=== PATIENT | female | born 1965 | race Caucasian/White ===

== ENCOUNTER 2019-08-18 16:37 | Emergency (ER) | payer MEDICAID, SELFPAY ==
--- NOTE | ~2019-08-18 | CT_ITS ---
EXAMINATION: CT BRAIN W/O DATE: 08/18/2019 17:53 INDICATION: Numbness on the left side after seizure TECHNIQUE: Computed tomography (CT) of the head was performed without intravenous contrast. The dose- length product was 605.33 mGy-cm. The mA was adjusted according to patient size. Iterative reconstruc tion technique was employed. COMPARISON: Comparison to multiple prior studies sequentially, with oldest reviewed study dated 06/18. FINDINGS: Normal brain parenchymal volume for age. Normal araujo-white differentiation. No acute intrac ranial hemorrhage, infarction, mass or mass effect. No ventriculomegaly or midline shift. Midline sagittal images demonstrate a normal corpus callosum, c raniovertebral junction and sella turcica. Basilar cisterns are patent. Paranasal sinuses and mastoids are pneumatized. No depressed skull fractures. IMPRESSION: 1. No acute intracranial abnormality. Reviewed, dictated and finalized at location A.
[2019-08-18 16:52] VITALS: BP 159/91; PULSE 76; RESP 17; TEMP 36.7; O2SAT 100
--- NOTE | 2019-08-18 17:34 | ED.GENADULT ---
HPI - General Adult General Chief complaint: Neuro Symptoms/Deficit Stated complaint: Left Side Numbness Time Seen by Provider: 08/18/19 17:17 Source: patient Mode of arrival: ambulatory Limitations: no limitations History of Present Illness HPI narrative: Patient is a 53-year-old with a history of epileptic seizures who presents for evaluation of recurrent seizure, numbness on her head and left upper extremity. Patient reports no decrease in movement or loss of strength, but states she has a tingling sensation. She has numerous breakthrough seizures, but states this is common for her. Last seizure was 2 days ago. Patient does at times have urinary incontinence with the seizures. No fever or recent medication changes. She follows with Dr. Mansfield. No current pain or injury. Patient does not drink alcohol, no nutritional deficits in her diet. Related Data Home Medications Medication Instructions Recorded Confirmed levetiracetam PO 08/18/19 lisinopril 08/18/19 Allergies Allergy/AdvReac Type Severity Reaction Status Date / Time No Known Allergies Allergy Verified 08/18/19 16:59 Review of Systems Review of Systems: Narrative: CONSTITUTIONAL: Denies fever HEENT: Denies sore throat, rhinorrhea CARDIOVASCULAR: Denies chest pain RESPIRATORY: Denies cough or dyspnea. GASTROINTESTINAL: Denies abdominal pain SKIN: Denies rash MUSCULOSKELETAL: Denies back pain NEUROLOGIC: Denies headache, reports paresthesias of the head and left upper extremity PMFSH Past Medical History Medical History (Updated 08/18/19 @ 19:02 by Keiry Presley MD) Arthritis Epilepsy Surgical History Surgical History (Updated 08/18/19 @ 17:36 by Keiry Presley MD) H/O bladder repair surgery H/O: hysterectomy Social History Social History (Updated 08/18/19 @ 17:36 by Keiry Presley MD) Smoking status: Never smoker Alcohol intake: never Substance use: never Gender identity (if verbalized by the patient): Female Exam Narrative: Exam Narrative: GENERAL: Awake, alert, conversant HEAD: Normocephalic, atraumatic. EYES: PERRLA and EOMI. ENT: Nares clear, no rhinorrhea or epistaxis. Mucous membranes moist. NECK: Supple. CHEST: No respiratory distress, breathing even and non labored HEART: Regular rate, sinus rhythm ABDOMEN:Non distended, non tender EXTREMITIES: Normal range of motion. No edema. SKIN: Warm, dry, no rash. NEURO:No focal deficits. Alert and oriented x3. Intact sensation bilateral parietal lobes. Finger to nose intact bilaterally. EOMs intact without nystagmus. No facial droop/asymmetry noted bilaterally. Grimace intact. Intact sensation in face. Hearing intact bilaterally. Shoulder shrug intact. Strength 5/5 bilateral upper extremities. Strength 5/5 bilateral lower extremities. Reflexes 2+ patellar. Heel to lyn intact bilaterally. Ambulatory with a narrow base, steady gait, no ataxia. Intact sensation median, ulnar, radial nerve. Course Vital Signs Vital signs: Vital Signs Temperature 36.7 C 08/18/19 16:52 Pulse Rate 76 08/18/19 16:52 Respiratory Rate 17 08/18/19 16:52 Blood Pressure 159/91 H 08/18/19 16:52 Pulse Oximetry 100 08/18/19 16:52 Temperature 36.7 C 08/18/19 16:52 Pulse Rate 76 08/18/19 16:52 Respiratory Rate 17 08/18/19 16:52 Blood Pressure 159/91 H 08/18/19 16:52 Pulse Oximetry 100 08/18/19 16:52 Medical Decision Making MDM Narrative Medical decision making narrative: Patient presenting for evaluation of breakthrough seizure, scalp and arm paresthesia. On exam, patient without any neurological deficits and has sensation. She has good movement. She is neurovascularly intact. Laboratory work-up is not remarkable for any acute severe pathology. Patient with stable epilepsy with breakthrough seizure which is typical for her. Patient was advised to follow-up with her neurologist regarding both symptoms as her CT head is unremarkable for mass. No sig
--- NOTE | 2019-08-18 17:37 | ECG_ITS ---
Measurements Intervals [place] Rate: 67 P: 26 WI: 144 QRS: -13 QRSD: 81 T: 30 QT: 422 QTc: 447 Interpretive Statements SINUS RHYTHM NORMAL ECG Electronically Signed On 08-19-2019 7:08:32 CDT by Jorge Abdullahi D.O.
--- NOTE | 2019-08-18 17:54 | PC.NURSE ---
Pt taken to CT scan
[2019-08-18 18:18] LABS: Basophils Absolute Auto 0.1 K/mm3 (0.0-0.1); Basophils Percent Auto 0.6 % (0.2-1.2); Eosinophils Absolute Auto 0.1 K/mm3 (0-0.3); Eosinophils Percent Auto 1.2 % (0-4.4); Hemoglobin 11.9 g/dL (12.0-15.0); Immature Granulocyte Absolute 0.01 K/mm3 (0.00-0.031); Immature Granulocyte Percent A 0.1 % (0-0.5); Lymphocytes Absolute Auto 3.06 K/mm3 (0.9-3.2); Lymphocytes Percent Auto 31.8 % (18.3-44.2); Mean Corpuscular HGB Conc 33.1 g/dl (32-36); Mean Corpuscular Hemoglobin 30.7 pg (26-34); Mean Platelet Volume 9.3 fl (7.4-10.4); Monocytes Absolute Auto 0.6 K/mm3 (0.1-0.6); Monocytes Percent Auto 5.7 % (2.6-8.5); Neutrophils Absolute Auto 5.8 K/mm3 (1.3-6.7); Neutrophils Percent Auto 60.6 % (45.5-73.1); Platelet Count Result 389 k/mm3 (150-375); Red Blood Count 3.87 M/mm3 (4.2-5.4); White Blood Count 9.6 K/mm3 (4.5-10.0)
[2019-08-18 18:29] LABS: Blood Urea Nitrogen 18 mg/dL (7-17); Calcium 9.1 mg/dL (8.4-10.2); Carbon Dioxide 27 mmol/L (22-30); Chloride 105 mmol/L (98-107); Estimated CRCL calculation 50 ml/min; Estimated Glomerular Filt Rate > 60; Glucose 90 mg/dL (65-105); Potassium 3.6 mmol/L (3.4-5.0); Sodium 140 mmol/L (137-145)
[2019-08-18 18:33] LABS: Add Urine Microscopic? YES; Appearance Urine Clear (Clear); Bacteria Urine 2+ /hpf; Bilirubin Urine Negative (Negative); Blood Urine 1+ (Negative); Color Urine Straw (Yellow); Glucose Urine UA Negative (Negative); Ketones Urine Negative (Negative); Leukocyte Esterase Ur Negative LEU/UL (Negative); Mucus Urine Rare /lpf; Nitrate Urine Negative (Negative); Protein Urine Negative (Negative); RBC Urine 0-2 /hpf (0-2); Squamous Epithelial Cell Urine Occasional /hpf (Few); Urobilinogen Urine Negative mg/dL (<2.0); WBC Urine 0-3 /hpf
[2019-08-18 19:15] VITALS: BP 128/70; PULSE 80; RESP 20; TEMP 36.7; O2SAT 99
[2019-08-23 05:21] LABS: Levetiracetam Keppra <1.0 mcg/mL (12.0-46.0)
== END 2019-08-18 19:17 | disposition home or self-care (01) ==
PROVIDERS: Emergency Provider Emergency Medicine; PCP Nurse Practitioner Family
DX: R20.2 Paresthesia of skin (principal); G40.909 Epilepsy, unspecified, not intractable, without status epilepticus; M19.90 Unspecified osteoarthritis, unspecified site
CPT/HCPCS: 36415; 70450; 80048; 80177; 81001; 85025; 93005; 99284

== ENCOUNTER 2020-03-07 13:38 | Emergency (ER) | payer MEDICARE, MEDICAID, SELFPAY ==
--- NOTE | ~2020-03-07 | CT_ITS ---
EXAMINATION: CT abdomen pelvis w con EXAM DATE: 03/07/2020 15:37 INDICATION: Epigastric pain . TECHNIQUE: Spiral CT of the abdomen and pelvis was performed following intravenous injection of 100 m L Omnipaque 350. Axial, coronal and sagittal images were reviewed. The dose-length product (DLP) fo r this examination was 274.91 mGy-cm. The exposure was tailored according to patient size (auto mA e xposure control), and iterative reconstruction (ASIR) was used as additional dose reduction technique . There is no prior study for comparison. FINDINGS: Liver, spleen, pancreas and right adrenal gland are unremarkable. There is left adrenal gl and lesion measuring 2.6 cm statistically most likely adenoma assuming absence of known malignancy. D oes not meet density criteria for adenoma on this postcontrast CT. Gallbladder is unremarkable. No biliary obstruction. Portal and splenic veins are patent. Kidneys enhance symmetrically. There is no hydronephrosis. The uterus is not identified and has likely been surgically resected. The bladd er is unremarkable. There is no retroperitoneal or pelvic lymphadenopathy. The appendix is normal. Small duodenal diverticulum, about 2 cm in size. Pylorus appears edematous, a ppearance is suspicious for peptic ulcer disease. There is expected amount of colonic stool. No fr ee intraperitoneal gas. The heart is normal in size. There are no pericardial or pleural effusions . The lung bases are unremarkable. There are no osteoblastic or osteolytic lesions identified. Mild compression fractures at the T10-11 endplates causing some kyphosis. IMPRESSION: 1. Findings suspicious for gastric pyloric peptic ulcer disease. No perforation. 2. Left adrenal lesion statistically likely adenoma but not meeting density criteria. If patient has known primary malignancy, consider follow-up CT abdomen without contrast. 3. Small sliding gastroesophageal hiatal hernia. Reviewed, dictated and finalized at location A. ERCIAL HVAC SERVICE TECHNICIAN IMPRESSION: 1. Findings suspicious for gastric pyloric peptic ulcer disease. No perforatio n. 2. Left adrenal lesion statistically likely adenoma but not meeting density cr iteria. If patient has known primary malignancy, consider follow-up CT abdomen without contrast. 3. Small sliding gastroesophageal hiatal hernia.
--- NOTE | ~2020-03-07 | XR_ITS ---
EXAMINATION: XR chest 2V EXAM DATE: 03/07/2020 16:45 INDICATION: Epigastric pain TECHNIQUE: Frontal and lateral projections of the chest obtained and reviewed. There is no prior flores dy for comparison. FINDINGS: The lungs are clear. There are no pleural effusions. The cardiomediastinal silhouette is within normal limits. There is no pneumothorax suspected. Mild thoracic dextroscoliosis. There are mild bony degenerative changes. IMPRESSION: No acute cardiopulmonary findings. Reviewed, dictated and finalized at location A. [facility]
[2020-03-07 13:48] VITALS: BP 106/76; PULSE 97; RESP 18; TEMP 35.8; O2SAT 100
[2020-03-07 14:11] LABS: Basophils Absolute Auto 0.1 K/mm3 (0.0-0.1); Basophils Percent Auto 0.4 % (0.2-1.2); Eosinophils Absolute Auto 0.6 K/mm3 (0-0.3); Eosinophils Percent Auto 2.9 % (0-4.4); Hematocrit 35.2 % (37.0-47.0); Hemoglobin 11.9 g/dL (12.0-15.0); Immature Granulocyte Absolute 0.12 K/mm3 (0.00-0.031); Immature Granulocyte Percent A 0.6 % (0-0.5); Mean Corpuscular HGB Conc 33.8 g/dl (32-36); Mean Corpuscular Hemoglobin 32.5 pg (26-34); Mean Corpuscular Volume 96.2 fl (80-100); Mean Platelet Volume 9.8 fl (7.4-10.4); Monocytes Absolute Auto 1.1 K/mm3 (0.1-0.6); Monocytes Percent Auto 5.3 % (2.6-8.5); Neutrophils Absolute Auto 15.4 K/mm3 (1.3-6.7); Neutrophils Percent Auto 76.8 % (45.5-73.1); Platelet Count Result 458 k/mm3 (150-375); Red Blood Count 3.66 M/mm3 (4.2-5.4); Red Cell Distribution Width 11.9 % (11.5-14.5)
--- NOTE | 2020-03-07 14:18 | ED.GENADULT ---
HPI - General Adult General Chief complaint: GI Bleed Stated complaint: abd pain/burning/vomiting blood Time Seen by Provider: 03/07/20 14:13 Source: patient, RN notes reviewed and old records reviewed History of Present Illness HPI narrative: 54-year-old female presents to emergency department for epigastric pain for the past 2 months. Additionally, she states she vomited blood once this afternoon. She has thrown up since she has been in the emergency department, and this did not reveal any blood. She states she has been taking Advil for the past 2 months to help with the abdominal pain. She is also having small bowel movements. No chest pain or shortness of breath. Related Data Home Medications Medication Instructions Recorded Confirmed levetiracetam PO DAILY 08/18/19 ibuprofen 600 mg PO Q6H PRN 03/07/20 Allergies Allergy/AdvReac Type Severity Reaction Status Date / Time No Known Allergies Allergy Verified 03/07/20 13:53 Review of Systems Review of Systems: Narrative: CONSTITUTIONAL: Denies fever, chills, or sweats. EYES: Denies visual changes, redness, or discharge. ENT: Denies rhinorrhea, congestion, sore throat, or otalgia. CARDIOVASCULAR: Denies chest pain, palpitations, or edema. RESPIRATORY: Denies cough or dyspnea. GASTROINTESTINAL: Denies abdominal pain, nausea, vomiting, or diarrhea. GENITOURINARY: Denies dysuria or hematuria. SKIN: Denies rash or itching. MUSCULOSKELETAL: Denies back pain, joint pain, or myalgia. NEUROLOGIC: Denies headache, numbness, dizziness, or weakness. PSYCHIATRIC: Denies anxiety or depression. All systems reviewed & are unremarkable except as noted in HPI and below (ROS) [facility] Past Medical History Medical History Arthritis Epilepsy Surgical History Surgical History H/O bladder repair surgery H/O: hysterectomy Social History Social History Smoking status: Never smoker Alcohol intake: never Substance use: never Gender identity (if verbalized by the patient): Female Exam Narrative: Exam Narrative: GENERAL: Well-appearing, well-nourished, and in no acute distress. HEAD: Normocephalic, atraumatic. EYES: PERRLA and EOMI. ENT: Nares clear, no rhinorrhea or epistaxis. Mucous membranes moist. NECK: Supple. CHEST: Clear to auscultation. No respiratory distress. HEART: Regular rate and rhythm. No murmur heard. Normal peripheral pulses. ABDOMEN: Soft, nondistended, normal active bowel sounds. Positive epigastric TTP EXTREMITIES: Normal range of motion. No edema. SKIN: Warm, dry, no rash. NEURO: No focal deficits. Alert and oriented x3. PSYCH: Normal mood and affect. Course Reevaluation(s) Reevaluation #1: 1625 -reevaluated patient, pain improved. Patient's CT scan concerning for PVD. Patient is on chronic Advil. Counseled patient to discontinue all NSAIDs. Take omeprazole as prescribed. Stay away from fatty, greasy, spicy foods. Counseled patient to also follow-up with a medical provider within 1 week. Return to emergency department if symptoms persist, worsen, or other concerns. Vital Signs Vital signs: Vital Signs Temperature 35.8 C L 03/07/20 13:48 Pulse Rate 97 03/07/20 13:48 Respiratory Rate 18 03/07/20 13:48 Blood Pressure 106/76 03/07/20 13:48 Pulse Oximetry 100 03/07/20 13:48 Temperature 35.8 C L 03/07/20 13:48 Pulse Rate 79 03/07/20 17:11 Respiratory Rate 18 03/07/20 17:11 Blood Pressure 132/80 03/07/20 17:11 Pulse Oximetry 98 03/07/20 17:11 Medical Decision Making Medical Records Medical records reviewed: Yes I reviewed the patient's medical records. Vital Signs Vital Signs: Vital Signs Temperature 35.8 C L 03/07/20 13:48 Pulse Rate 97 03/07/20 13:48 Respiratory Rate 18 03/07/20 13:48 Blood Pressure 106/76 03/07/20 13:48 Pulse
--- NOTE | 2020-03-07 14:20 | ECG_ITS ---
Measurements Intervals [place] Rate: 80 P: 42 ID: [id number] QRS: 10 QRSD: 80 T: 30 QT: 362 QTc: 418 Interpretive Statements SINUS RHYTHM WITH SINUS ARRHYTHMIA BASELINE ARTIFACT- I, II, III, AVL, AVF NORMAL ECG Electronically Signed On 03-07-2020 14:48:01 PIN DRAFTER OPERATOR by Jorge Abdullahi D.O.
[2020-03-07 14:47] LABS: Alanine Aminotransferase 11 U/L (4-35); Albumin Level 3.8 g/dL (3.5-5.1); Alkaline Phosphatase 53 U/L (38-126); Anion Gap 12 mmol/L (8-16); Aspartate Amino Transferase 19 U/L (14-36); Bilirubin,Total 0.2 mg/dL (0.2-1.3); Blood Urea Nitrogen 36 mg/dL (7-17); Calcium 9.9 mg/dL (8.4-10.2); Carbon Dioxide 19 mmol/L (22-30); Chloride 107 mmol/L (98-107); Estimated CRCL calculation 34 ml/min; Estimated Glomerular Filt Rate 46; Glucose 88 mg/dL (65-105); Potassium 3.8 mmol/L (3.4-5.0); Sodium 138 mmol/L (137-145)
[2020-03-07 14:48] VITALS: BP 134/92; PULSE 74; RESP 16; O2SAT 97
--- NOTE | 2020-03-07 14:49 | PC.NURSE ---
Multiple unsuccessful lab draw and IV attempts. Called Sonia Counts for IV placement via u/s.
--- NOTE | 2020-03-07 15:23 | PC.NURSE ---
pt to ct scan via stretcher
[2020-03-07] MEDS: ONDANSETRON INJ 4 MG/2 ML VIAL IV PUSH (15:24)
[2020-03-07] MEDS: fentaNYL CITRATE INJ (*CRX) 100 MCG/2 ML VIAL 50 MCG IV PUSH (15:24)
[2020-03-07 15:26] LABS: Basophils Absolute Auto 0.1 K/mm3 (0.0-0.1); Basophils Percent Auto 0.4 % (0.2-1.2); Eosinophils Absolute Auto 0.2 K/mm3 (0-0.3); Hematocrit 28.8 % (37.0-47.0); Hemoglobin 9.8 g/dL (12.0-15.0); Immature Granulocyte Absolute 0.07 K/mm3 (0.00-0.031); Immature Granulocyte Percent A 0.4 % (0-0.5); Lymphocytes Percent Auto 9.8 % (18.3-44.2); Mean Corpuscular Hemoglobin 32.8 pg (26-34); Mean Corpuscular Volume 96.3 fl (80-100); Mean Platelet Volume 9.5 fl (7.4-10.4); Monocytes Absolute Auto 0.7 K/mm3 (0.1-0.6); Monocytes Percent Auto 4.2 % (2.6-8.5); Neutrophils Absolute Auto 13.7 K/mm3 (1.3-6.7); Neutrophils Percent Auto 84.2 % (45.5-73.1); Platelet Count Result 441 k/mm3 (150-375); Red Blood Count 2.99 M/mm3 (4.2-5.4); Red Cell Distribution Width 11.9 % (11.5-14.5); White Blood Count 16.3 K/mm3 (4.5-10.0)
[2020-03-07 15:38] LABS: Anion Gap 9 mmol/L (8-16); Blood Urea Nitrogen 36 mg/dL (7-17); Calcium 9.2 mg/dL (8.4-10.2); Carbon Dioxide 24 mmol/L (22-30); Chloride 105 mmol/L (98-107); Estimated CRCL calculation 36 ml/min; Estimated Glomerular Filt Rate 51; Glucose 91 mg/dL (65-105); Lipase 48 U/L (23-300); Potassium 3.8 mmol/L (3.4-5.0); Sodium 138 mmol/L (137-145)
[2020-03-07 15:49] LABS: Troponin I < 0.012 ng/mL (0.000-0.034)
[2020-03-07 15:53] LABS: INR 0.9; Partial Thromboplastin Time 22.7 SECONDS (22.3-36.8); Prothrombin Time 12.9 Seconds (11.1-14.7)
[2020-03-07 16:39] VITALS: BP 132/83; PULSE 81; RESP 15; O2SAT 100
[2020-03-07 17:11] VITALS: BP 132/80; PULSE 79; RESP 18; O2SAT 98
== END 2020-03-07 17:12 | disposition home or self-care (01) ==
PROVIDERS: Emergency Medicine; Emergency Provider Emergency Medicine; PCP Nurse Practitioner Family
DX: K27.9 Peptic ulcer, site unspecified, unspecified as acute or chronic, without hemorrhage or perforation (principal); M19.90 Unspecified osteoarthritis, unspecified site; G40.909 Epilepsy, unspecified, not intractable, without status epilepticus
CPT/HCPCS: 36415; 71046; 74177; 80048; 80053; 83690; 84484; 85025; 85610; 85730; 86850; 86900; 86901; 93005; 96374; 96375; 99284; J2405; J3010; Q9967